=== PATIENT | male | born 1955 | race Caucasian/White ===

== ENCOUNTER → 2022-09-10 08:56 | Outpatient (BNVA) | payer MEDICAID, SELFPAY | PROVIDERS: Visit Provider Family Medicine | DX: Z12.2 Encounter for screening for malignant neoplasm of respiratory organs (principal); R30.0 Dysuria; Z12.5 Encounter for screening for malignant neoplasm of prostate; M79.605 Pain in left leg; M79.604 Pain in right leg; Z71.6 Tobacco abuse counseling; F17.200 Nicotine dependence, unspecified, uncomplicated; I87.2 Venous insufficiency (chronic) (peripheral) | CPT/HCPCS: 80053; 80061; 84153; 85025 ==

== ENCOUNTER 2022-10-20 07:54 | Emergency (ER) | payer MEDICARE, MEDICAID, SELFPAY ==
[2022-10-20 08:15] VITALS: BP 182/84; PULSE 73; RESP 18; O2SAT 95
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
--- NOTE | 2022-10-20 08:42 | USR_ITS ---
PROCEDURE INFORMATION: Exam: US Duplex Lower Extremity Arteries Exam date and time: 10/20/2022 9:40 AM Age: 67 years old Clinical indication: Swelling (edema) of limb; Lower extremity, bilateral; Additional info: Claudication/pain, coolness TECHNIQUE: Imaging protocol: Real-time ultrasound scan of the arteries of the bilateral lower extremities with 2-D wahl scale, color Doppler flow and spectral waveform analysis. Images documented and saved. COMPARISON: No relevant prior studies available. FINDINGS: Predominantly triphasic waveforms are seen throughout the lower extremity arterial systems bilaterally. RIGHT: The peak systolic velocity within the right common femoral artery is 98 cm/s. The peak systolic velocity within the proximal right femoral artery is 97 cm/s. The peak systolic velocity within the mid right femoral artery is 116 cm/s. The peak systolic velocity within the distal right femoral artery is 95 cm/s. The peak systolic velocity within the right popliteal artery is 41 cm/s. The peak systolic velocity within the right posterior tibialis artery is 74 cm/s. The peak systolic velocity within the right dorsalis pedis artery is 28 cm/s. LEFT: The peak systolic velocity within the left common femoral artery is 97 cm/s. The peak systolic velocity within the proximal left femoral artery is 78 cm/s. The peak systolic velocity within the mid left femoral artery is 107 cm/s. The peak systolic velocity within the distal left femoral artery is 81 cm/s. The peak systolic velocity within the left popliteal artery is 36 cm/s. The peak systolic velocity within the left posterior tibialis artery is 45 cm/s. The peak systolic velocity within the left dorsalis pedis artery is 71 cm/s. US/CV arterial duplex [facility] [id number] IMPRESSION: No arterial occlusion or hemodynamically significant stenosis is identified.
--- NOTE | 2022-10-20 08:42 | USCV_ITS ---
Christopher Wilkinson Age: 67 Gender: M : 1955 Exam Date: 10/20/2022 10:00 Ordering Phys: Kaila Rasheed Technologist: CT Exam Location: [facility]_ Indication: swelling, pain PROCEDURES: Venous duplex imaging was performed in bilateral lower extremities. The following venous structures were evaluated: common femoral vein, profunda vein, proximal portion of the greater saphenous vein, superficial femoral vein, and the popliteal vein. In addition, the posterior tibial veins were evaluated. Serial compression, augmentation maneuvers, and spectral Doppler flow evaluation were performed. FINDINGS: normal venous us, no dvt CONCLUSIONS No evidence of right lower extremity DVT. No evidence of left lower extremity DVT. Marcos Burger MD (Electronically Signed) Final Date: 20 October 2022 11:23 S
[2022-10-20 10:43] VITALS: RESP 15
== END 2022-10-20 10:44 | disposition home or self-care (01) ==
PROVIDERS: Emergency Provider Physician Assistant; PCP Family Medicine
DX: I87.2 Venous insufficiency (chronic) (peripheral) (principal); F17.210 Nicotine dependence, cigarettes, uncomplicated
CPT/HCPCS: 93925; 93970; 99284